=== PATIENT | female | born 1985 | race Caucasian/White ===

== ENCOUNTER 2020-04-26 05:45 | Day surgery (SDC) | payer BC, SELFPAY ==
[~2020-04-26] VITALS: Ht 154.9 cm; Wt 77.1 kg
[2020-04-26 06:59] LABS: HCG,QUAL RESULT NEGATIVE (NEGATIVE)
[2020-04-26] MEDS ORDERED: CEFAZOLIN SOD 1 GM in D5W 50 ML IV ONE (07:00)
[2020-04-26] MEDS ORDERED: ROCURONIUM BROMIDE 10 MG/ML (ZEMURON) IV ONE (07:45)
[2020-04-26] MEDS ORDERED: GLYCOPYRROLATE 0.2 MG/ML VIAL IJ ONE (07:45)
[2020-04-26] MEDS ORDERED: MIDAZOLAM HCL 5 MG/5 ML VIAL IVP ONE (07:45)
[2020-04-26] MEDS ORDERED: IOPAMIDOL 50 ML VIAL IV ONE (07:45)
[2020-04-26] MEDS ORDERED: ONDANSETRON HCL 4 MG/2 ML VIAL IVP ONE ×2 (07:45→11:22)
[2020-04-26] MEDS ORDERED: HYDROmorphone 2 MG/ML VIAL IVP ONE (07:45)
[2020-04-26] MEDS ORDERED: BUPIVACAINE /EPINEPHRINE/PF 0.25% 30 ML VIAL INJ ONE (07:45)
[2020-04-26] MEDS ORDERED: ePHEDrine sulfate 50 MG/ML VIAL IVP ONE (07:45)
[2020-04-26] MEDS ORDERED: DEXAMETHASONE SOD PHOSPHATE 4 MG/ML VIAL IVP ONE (07:45)
[2020-04-26] MEDS ORDERED: NS IRRIG SOLN 1000 ML IR ONE (07:45)
[2020-04-26] MEDS ORDERED: NEOSTIGMINE METHYLSULFATE 1 MG/ML, 10 ML VIAL IVP ONE (07:45)
[2020-04-26] MEDS ORDERED: fentaNYL CITRATE/PF 100 MCG/2 ML AMP IVP ONE (07:45)
[2020-04-26] MEDS ORDERED: SEVOFLURANE 15 MIN GAS INH ONE (07:45)
[2020-04-26] MEDS ORDERED: PROPOFOL 200MG/ 20ML VIAL (DIPRIVAN) IV ONE (07:45)
[2020-04-26] MEDS ORDERED: NS 1000 ML IV.SOLN IV ONE (07:45)
[2020-04-26] MEDS ORDERED: KETOROLAC TROMETHAMINE 30 MG VIAL IVP ONE (07:45)
[2020-04-26] MEDS ORDERED: METOCLOPRAMIDE HCL 10 MG/2 ML VIAL IVP ONE (07:45)
[2020-04-26] MEDS ORDERED: IOHEXOL 50 ML IV ONE (08:15)
[2020-04-26] MEDS ORDERED: D5/0.45 NS 1,000 ML IV SCH (08:52)
[2020-04-26] MEDS ORDERED: HYDROcodone/ACETAMIN 5-325 MG TAB (NORCO/ VICODIN) PO PRN ×2 (09:00)
[2020-04-26] MEDS ORDERED: HYDROmorphone 1 MG INJ. 1 MG/ML AMPUL IVP PRN (09:00)
[2020-04-26 10:10] VITALS: BP_SYST 110
[2020-04-26] MEDS ORDERED: MEPERIDINE HCL/PF 25 MG/ML DISP.SYRIN IVP PRN ×2 (10:15)
[2020-04-26] MEDS ORDERED: LR 500 ML IV SCH (10:30)
[2020-04-26] MEDS ORDERED: ONDANSETRON HCL 4 MG/2 ML VIAL IVP PRN (10:30)
[2020-04-26] MEDS ORDERED: NALOXONE HCL 0.4 MG/ML AMP (NARCAN) IVP PRN (10:30)
[2020-04-26] MEDS ORDERED: ONDANSETRON HCL 4 MG/2 ML VIAL ONE (11:33)
== END 2020-04-26 12:10 | disposition home or self-care (01) ==
LOC: SDS 05:45 → SMU 05:45 → EDSTATUS 08:57 → SDS 12:10
PROVIDERS: ATTEND Colon & Rectal Surgery
DX: K80.10 Calculus of gallbladder with chronic cholecystitis without obstruction (principal); F98.8 Other specified behavioral and emotional disorders with onset usually occurring in childhood and adolescence; F32.9 Major depressive disorder, single episode, unspecified; Z79.899 Other long term (current) drug therapy; Z11.59 Encounter for screening for other viral diseases
CPT/HCPCS: 47563; 74300; 84703; 88304; C1727; C1758; J0690; J1100; J1170; J1885; J2250; J2405; J2704; J2710; J2765; J3010; J3490 ×2; J7030; J7060; J7120; Q9967 ×2; U0003; 76000